=== PATIENT | male | born 1975 | race Two or more races ===

== ENCOUNTER → 2019-02-12 | Outpatient (CLI) | payer BC ==
--- NOTE | 2019-02-12 17:22 | CONS ---
Assessment/Plan Assessment/Plan Hospital Course (Demo Recall) 44-year-old male with a symptomatic medial meniscus tear of the left knee. He does have mechanical symptoms. I discussed both options with the patient one being steroid injection combined with physical therapy versus arthroscopic knee surgery for partial medial meniscectomy. The patient decided that he would like to try the steroid injection physical therapy first and if that fails we can move onto discuss arthroscopic knee surgery for partial medial meniscectomy. Plan: Authorization for left knee steroid injection Authorization for physical therapy Low impact activity Ice Consultation Date/Type/Reason Admit Date/Time Date of Consultation: Feb 12, 2019 Reason for Consultation Left knee pain and swelling Date/Time of Note DATE: 02/12/19 TIME: 17:14 Hx of Present Illness Is a 44-year-old male with a chief complaint of left knee pain. The pain began approximately 4 months ago while playing with his 5-year-old son. He twisted his knee and at that time had a sharp pain and had swelling of the knee. The pain has not improved with ice and occasional anti-inflammatory. The patients pain is in the medial aspect of the left knee. Pain is not radiating to the lower leg. The pain is rated as a 48/10. Patient does note swelling. States he has popping, clicking, catching. Patient denies complaints of numbness or tingling. The pain is exacerbated by climbing stairs and ambulation. Pain is not relieved by NSAID's. Patient has been taking ibuprofen on a p.r.n. basis as well as using ice. Duration: 4 months Injury: Twisted knee Walking tolerance: Not limited Limp: Yes Support: No Swelling: Yes Crepitation: Yes Instability: No Stairs: Painful Physical Therapy: No Injections: No NSAIDs: Ibuprofen as needed. NSAID regiment contraindicated given history of peptic ulcer disease Prior surgery: No Back pain: No Hip pain: No Risk of AVN : [] Patient denies fever, chills, shortness of breath, chest pain, nausea/vomiting, constipation, diarrhea, numbness, and tingling. Past Medical History Seizures Peptic ulcer disease GERD Kidney stones Headaches Past Surgical History Right knee arthroscopic surgery 2010 Right ankle surgery 2001 Left hand/finger surgery 2011 Family History Significant Family History: no pertinent family hx Social History Alcohol Use: occasionally (2- 3 drinks a week) Smoking Status: Current every day smoker Drug Use: none Exam/Review of Systems Exam Vitals Weight: 20 pounds Height: 5 foot 10 inches Temperature: 90.4 Heart Rate: 79 Blood Pressure: 118/68 Respiratory Rate: 12 Exam General: Alert, oriented x3. No Acute Distress. Heart: Regular rate and rhythm. Lungs: No respiratory distress. No accessory muscle use. Musculoskeletal: Left Knee This is a well developed male who is alert, oriented times three and in no apparent distress. Skin is intact over the left knee as well as the lower extremity with no a brasions, lacerations, or ulcerations. Observation of the patient's gait reveals an antalgic gait with No thrust. Frontal plane alignment is neutral. 1+ effusion There is pain on palpation of medial joint line. Positive Yevgeniy's medial joint line. The patient demonstrates grinding anteriorly with ROM. Range of motion: 0 extension to approximately 120 degrees of flexion. Collateral ligament testing reveals no instability with varus or valgus stress at 0 and 30 degrees of flexion. Negative Douglas's and negative posterior drawer. Neurovascularly intact with 5/5 EHL/tibialis anterior/gastroc. Sensation intact to light touch in a sural, saphenous, deep peroneal, superficial peroneal, medial and lateral plantar nerve distribution. Palpable, symmetric dorsalis pedis and posterior tibial pulses in both lower extremities. Hip examination normal. Imaging Imaging The patient received a standard set of films today that were personally reviewed. Imaging included a standing bilateral knee AP, PA flexion, merchant views and a dedicated lateral of the affected knee: There is neutral alignment of the knee. There is no loss of joint space in any compartment(s). There is no osteophyte formation. There is no subchondral sclerosis. There are no subchondral cysts. No fracture. Normal knee x-ray MRI of left knee from outside facility dated November 26, 2018 personally reviewed. Complex tear of the posterior horn of the medial meniscus with radial/oblique components and mild adjacent synovitis. Lateral meniscus normal. No other ligamentous injury. No chondromalacia. RUBIN HICKMAN MD Feb 12, 2019 17:22
--- NOTE | 2019-02-13 20:35 | RADRPT ---
PROCEDURE: XR Knees. CLINICAL INDICATION: Bilateral knee pain. TECHNIQUE: Total of six views. Frontal, oblique, and patellar views of both knees. Lateral view o f the left knee. COMPARISON: No prior study is available for comparison. FINDINGS: There is no fracture or dislocation. The soft tissues are normal. Articular surfaces are intact. There is no lytic or blastic lesion. There is no radiopaque foreign body. IMPRESSION: 1. Unremarkable images of both knees. RPTAT: QQ .Som Mancuso MD, MD Date Time Electronically viewed and signed by .Som Mancuso MD, on 02/13/2019 20:34 .R/
== END | disposition home or self-care (01) ==
LOC: HKI 15:25
PROVIDERS: ATTEND Orthopaedic Surgery Adult Reconstructive Orthopaedic Surgery
DX: M23.204 Derangement of unspecified medial meniscus due to old tear or injury, left knee (principal); G40.909 Epilepsy, unspecified, not intractable, without status epilepticus; K27.9 Peptic ulcer, site unspecified, unspecified as acute or chronic, without hemorrhage or perforation; K21.9 Gastro-esophageal reflux disease without esophagitis; F17.210 Nicotine dependence, cigarettes, uncomplicated
CPT/HCPCS: 73564; Z7500; G0463

== ENCOUNTER → 2019-03-03 | Outpatient (CLI) | payer BC ==
--- NOTE | 2019-03-03 17:22 | CONS ---
Consult Date/Type/Reason Admit Date/Time Initial Consult Date Date/Time of Note DATE: 03/03/19 TIME: 17:20 Subjective 44-year-old male returns clinic today for left knee steroid injection for meniscus tear. States his pain is somewhat improved since last visit he has decreased mechanical symptoms and decreased swelling. Denies numbness and tingling. Objective Exam General: Awake, alert, in no acute distress, pleasant and cooperative Heart: regular rhythm Lungs: breathing comfortably, no tachypnea or dyspnea MUSCULOSKELETAL: Left lower extremity: Skin intact. No erythema. Sensation intact to light touch in a sural, saphenous, deep peroneal, superficial peroneal, medial and lateral plantar nerve distribution. Motor is intact, patient able to dorsiflex and plantarflex ankle and extend and flex great toe. Dorsalis Pedis pulse +2, Brisk capillary refill. Compartments are so ft. Calves non-tender to palpation bilaterally. Assessment/Plan Hospital Course (Demo Recall) 44-year-old male presenting today for his knee steroid injection to initiate conservative treatment of left meniscus tear. Plan: Left knee steroid injection Physical therapy Follow-up PRN Assessment/Plan (Daily) Left knee steroid injection procedure: Risks and benefits of steroid injection reviewed with patient. The risks include infection, failure, pain, swelling, nerve/tendon/ligament damage. The patient verbalized understanding and verbal consent was obtained prior to procedure. The left knee was prepped in a sterile fashion with alcohol and betadine the site of injection was confirmed. Lateral approach was used. The skin and capsule was anesthetized with 3mL 1% lidocaine. The left knee was injected with 2mL 1% lidocaine, 2mL 0.25% bupivacaine, 40mg Depo-Medrol. Injection flowed freely. Good hemostasis was achieved and no complications noted. The patient tolerated the procedure well. Limit activity and ice for 24-48 hours RUBIN HICKMAN MD Mar 03, 2019 17:22
== END | disposition home or self-care (01) ==
LOC: HKI 14:29
PROVIDERS: ATTEND Orthopaedic Surgery Adult Reconstructive Orthopaedic Surgery
DX: S83.207A Unspecified tear of unspecified meniscus, current injury, left knee, initial encounter (principal); X58.XXXA Exposure to other specified factors, initial encounter; Y92.89 Other specified places as the place of occurrence of the external cause
CPT/HCPCS: 20610; Z7500; Z7610; G0463